=== PATIENT | female | born 1930 | race Two or more races ===

== ENCOUNTER 2018-03-27 12:55 | Outpatient (CLI) | payer OTHER | END 2018-03-27 14:38 | disposition home or self-care (01) | LOC: RAD 12:55 | DX: M17.0 Bilateral primary osteoarthritis of knee (principal); M15.8 Other polyosteoarthritis ==

== ENCOUNTER → 2018-11-05 | Day surgery (SDC) | payer OTHER ==
[~2018-11-05] MED LIST: ALEVE220 M1 PO; ALTACE1.25 MG PO; ASPIRIN81 M1 PO; CEFADROXIL500 MG PO; GLIPIZIDE ER2.5 MG PO; GLIPIZIDE ER5 MG PO; HYDROCHLOROTHIA25 MG PO; PAROXETINE HCL20 MG; SINGULAR PO; TIROSINT25 MCG PO; ULTRACET PO; ZOCOR20 MG PO
== END | disposition home or self-care (01) ==
LOC: EDSTATUS 11-04 08:00 → O/R 11-04 08:00 → CIR.AMB 06:30 → EDBD 08:00 → CIR.AMB 23:00
DX: S82.841A Displaced bimalleolar fracture of right lower leg, initial encounter for closed fracture (principal); S93.421A Sprain of deltoid ligament of right ankle, initial encounter
CPT/HCPCS: 27814; 20902; 27695; C1776